=== PATIENT | female | born 1940 | race Two or more races ===

== ENCOUNTER 2018-09-25 14:09 | Outpatient (CLI) | payer MEDICARE ==
[~2018-09-25 14:09] MED LIST: LANOXIN250 MCG ORAL; SYNTHROID88 MCG ORAL; TOPROL XL50 MG ORAL
--- NOTE | 2018-09-25 14:30 | General Progress Note ---
Assessment/Plan Problem List: (1) GERD (gastroesophageal reflux disease) ICD Codes: K21.9 - Gastro-esophageal reflux disease without esophagitis SNOMED: 019647803 (2) Gastritis ICD Codes: K29.70 - Gastritis, unspecified, without bleeding SNOMED: 8105036 Assessment/Plan: EGD and colonoscopy reviewed add ppi add align Subjective ROS Limited/Unobtainable: Yes Allergies: Coded Allergies: No Known Allergies (Unverified , 04/03/17) Objective General Appearance: alert EENT: normal ENT inspection Neck: supple Cardiovascular: normal rate Respiratory/Chest: lungs clear Abdomen: normal bowel sounds, non tender, soft Extremities: non-tender Jaquan Barrios MD Sep 25, 2018 14:30
== END 2018-09-25 16:09 | disposition home or self-care (01) ==
LOC: PAN 14:09
DX: K21.9 Gastro-esophageal reflux disease without esophagitis (principal); K29.70 Gastritis, unspecified, without bleeding
CPT/HCPCS: 99202

== ENCOUNTER 2019-04-30 15:07 | Outpatient (CLI) | payer MEDICARE, OTHER ==
--- NOTE | 2019-05-01 13:30 | General Progress Note ---
Assessment/Plan Assessment/Plan: abd pain constipation EGD and colonoscopy reviewed added linzess 72 added bentyl 20 prn RTC 3 months Subjective ROS Limited/Unobtainable: Yes Allergies: Coded Allergies: No Known Allergies (Unverified , 04/03/17) Objective General Appearance: alert EENT: normal ENT inspection Neck: supple Cardiovascular: normal rate Respiratory/Chest: lungs clear Abdomen: normal bowel sounds, non tender, soft Extremities: non-tender Jaquan Barrios MD May 01, 2019 13:30
== END 2019-04-30 16:36 | disposition home or self-care (01) ==
LOC: PAN 15:07
DX: R10.9 Unspecified abdominal pain (principal); K59.00 Constipation, unspecified
CPT/HCPCS: 99212